=== PATIENT | male | born 1975 | race Caucasian/White ===

== ENCOUNTER 2023-08-02 08:35 | Day surgery (SDC) | payer OTHER ==
[2023-08-02] MEDS: LACTATED RINGERS 1,000 ML IV SCH (09:27)
[2023-08-02] MEDS: LIDOCAINE 1% (10MG/ML) FOR IV START INTRADERMA ONE (09:27)
[2023-08-02 09:44] VITALS: RESP 16; TEMP 97.5
[2023-08-02] MEDS ORDERED: PROPOFOL 10 MG/ML 20 ML VIAL IV ONE (10:02)
--- NOTE | 2023-08-02 10:04 | P.GSHP ---
History of Present Illness H&P Date: 08/02/23 Chief Complaint: Screening colonoscopy This is a 48-year-old male presents today for screening colonoscopy. Patient denies a significant GI complaints. Past Medical History Past Medical History: Asthma, Thyroid Disorder Additional Past Medical History / Comment(s): Asthma as younger person, diverticulitis. History of Any Multi-Drug Resistant Organisms: None Reported Past Surgical History: Appendectomy, Ear Surgery, Orthopedic Surgery Additional Past Surgical History / Comment(s): R arm surgery "to put bones back in place", myringotomy/tubes Past Anesthesia/Blood Transfusion Reactions: No Reported Reaction Smoking Status: Former smoker - Past Family History Mother Family Medical History: Eye Disorder Father Additional Family Medical History / Comment(s): . Medications and Allergies Home Medications Medication Instructions Recorded Confirmed Type Ibuprofen [Motrin] 400 mg PO Q6H PRN 07/31/23 07/31/23 History Thyroid,Pork [[place] Thyroid] 60 mg PO QAM 07/31/23 07/31/23 History diphenhydrAMINE [Benadryl] 50 mg PO BID 07/31/23 07/31/23 History Allergies Allergy/AdvReac Type Severity Reaction Status Date / Time glycopyrrolate [From Robinul] Allergy Severe Anaphylaxis Verified 08/02/23 09:16 meperidine [From Demerol] Allergy Severe Anaphylaxis Verified 08/02/23 09:16 morphine Allergy Severe Anaphylaxis Verified 08/02/23 09:16 gluten Allergy Intermediate Rash/Hives Verified 08/02/23 09:16 strawberry Allergy Intermediate Rash/Hives Verified 08/02/23 09:16 Surgical - Exam Vital Signs Temp Pulse Resp BP Pulse Ox 97.5 F L 82 16 123/89 99 08/02/23 09:25 08/02/23 09:25 08/02/23 09:25 08/02/23 09:25 08/02/23 09:25 - General well developed, well nourished, no distress - Eyes PERRL - ENT normal pinna - Neck no masses - Respiratory normal expansion - Cardiovascular Rhythm: regular - Abdomen Abdomen: soft, non tender Assessment and Plan Assessment: Perform screening colonoscopy
--- NOTE | 2023-08-02 10:18 | P.OP ---
Date of Procedure: 08/02/23 Preoperative Diagnosis: Screening colonoscopy Postoperative Diagnosis: Diverticulosis Procedure(s) Performed: Colonoscopy Anesthesia: MAC Surgeon: Nabil Baltazar Pathology: none sent Condition: stable Disposition: PACU Description of Procedure: The patient's placed on the endoscopy table in the lateral position her she received IV sedation. Digital rectal exam was performed. The prostate was symmetrical without nodules. The colonoscope was then placed patient anus passed throughout the entire colon. The ileocecal valve was visually is. The cecum, ascending and transverse colon appeared normal. The descending and; appeared normal. Scope was brought back the rectum this appeared normal. Scope withdrawn for patient.
[2023-08-02 10:56] VITALS: BP 131/96; PULSE 68
== END 2023-08-02 10:53 | disposition home or self-care (01) ==
LOC: ORWHC2ENDO 08:35
PROVIDERS: ATTEND Surgery
DX: Z12.11 Encounter for screening for malignant neoplasm of colon (principal); K57.30 Diverticulosis of large intestine without perforation or abscess without bleeding; J45.909 Unspecified asthma, uncomplicated; E07.9 Disorder of thyroid, unspecified; Z90.49 Acquired absence of other specified parts of digestive tract; Z87.891 Personal history of nicotine dependence; Z79.890 Hormone replacement therapy; Z88.5 Allergy status to narcotic agent; Z79.899 Other long term (current) drug therapy
CPT/HCPCS: 45378; J2704